=== PATIENT | male | born 1955 | race Caucasian/White ===

== ENCOUNTER → 2016-05-29 | Day surgery (SDC) | payer OTHER ==
[~2016-05-29] MED LIST: BUPIVACAINE/EPINEPHRINE 0.5% PF 30 ML VIAL ONE; COUM5TAB PO; FURO1TAB93 PO; KETOROLAC TROMETHAMINE 30 MG/ML (IVP) VIAL IV PUSH ONE; LACTATED RINGER'S 1000 ML INJ 1,000 ML ONE; MEPERIDINE HCL 25 MG/ML VIAL ONE; MEPERIDINE HCL 50 MG/ML VIAL ONE; METH750T2 PO; MIDAZOLAM HCL 2 MG/2 ML VIAL ONE; ONDANSETRON HCL 4 MG/2 ML VIAL IV PUSH ONE; POTA-243 PO; PROPOFOL 200 MG/20 ML AMP IV ONE; ceFAZolin 2 GM PREMIX 50 ML ONE; oxyCODONE/ACETAMINOPHEN 5 MG/325 MG TAB ONE
--- NOTE | 2016-05-31 15:25 | MP ---
cc: CANDACE CLANCY M.D. DATE OF SURGERY: 05/29/2016 PREOPERATIVE DIAGNOSIS: Arthrofibrosis, left knee. POSTOPERATIVE DIAGNOSIS: Arthrofibrosis, left knee. OPERATION: Left knee arthroscopic extensive debridement including synovectomy, suprapatellar pouch, lateral gutter and anterior compartment. Left knee arthroscopic lateral relief. ANESTHESIA: General. SURGEON: Candace Clancy MD ESTIMATED BLOOD LOSS: Minimum. DRAINS: None. SPECIMENS: None. COMPLICATIONS: None known. 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 He has had improvement of his knee function following that revision surgery but he continues to have significant limitation of the flexion. He has a tight lateral reticulum, he has some build up of calcification along the lateral gutter of the knee. He has offered a arthroscopic approproach to this problem, understanding the risks and potential benefits and the risks after surgery which could make his condition worse or not improve his condition. DISCUSSION: Detailed informed consent was obtained. PROCEDURE: The patient is brought into the operating room and is placed under general anesthesia. The left lower extremity is prepped and drained, noted in usual sterile fashion. IV antibiotics were given a time out was completed. We proceeded with injecting Marcaine and epinephrine about the planned superior portals. We made a portal superior to the patella both medially and laterally. We introduced the scope first to the medial portal and visualized by looking across the suprapatellar pouch. There was abundant scar tissue on the femur and looking up words superiorly there is significant scar tissue formation, we brought the shaver in from the medial sided and debrided the scar tissue and then we used a Melgoza Care Wand to further ablate scar tissue and obtain hemostasis. We released capsular tissue along the medial gutter and we did take photographed from this vantage point then we switched and then visualize from the superior medial portal and then cleaned and removed scar tissue from the suprapatellar pouch on the lateral side and then we switched to a 70 degrees scope and we cleaned the gutter extensively on the lateral side which had abundant scar tissue and then we made our inferolateral portal and we came on top of the fascial layer but underneath the subcutaneous fat and we came up to the superior portal and then we brought the cautery in from this angle and then with a direct visualization with the 70 degrees scope we did arthroscopic lateral release and completed that and then resected quite a bit of the thickened retinacular tissue along the lateral aspect and then coming down inferiorly. We continued to resect scar tissue and we brought the cautery and the inferior lateral and proceeded to direct this into the anterior aspect of the knee where there was significant amount of thickened scar tissue in this location. At this point we then cleared out enough scar tissue that we could see the lateral gutter and the lateral joint line and we came down along the lateral joint line and we found calcium and also bone along the lateral joint line and then we released this and that resected this. Then we switched the scope to the anterior inferior portal and brought in the shaver in the cautery device is from the superior lateral and were able to come down on the joint line and clean this out, after this was performed, then we started with inferior medial portal and made this portal at the level of the polyethylene to continue to protect in the femoral condyle from beginning scratched and then used the cautery again to ablate and also the shaver and continued to clean the posterior fat pad region and then once we had good visualization here and then we came medially and there was significant thickened synovial tissue and scar tissue and this was removed. We came all way around to the medial aspect and the level of the polyethylene spacer and after this was completed and then we went to the notch and we did some bony debridement and then some debridement and partial release of the posterior cruciate ligament and we were satisfied that we had that taken out the abundant scar tissue and then took our final photograph and then we remove all of the arthroscopic equipment and at the beginning the operation we checked the gravity flexion which was about 80 degrees. Now gravity flexion was about 95-100 degrees and we are able to manipulate the knee and a slightly further flexion probably as high as 120 degrees. The Marcaine had been injected about the portals. We injected additional Marcaine and then we closed with 3-0 nylon. Xeroform applied. Sterile dressing applied. Malcolm wrap applied. The patient was awoken return recovery room in stable condition. MD AIDA Murphy/keily /2:16 PM /3:00 PM
== END | disposition home or self-care (01) ==
LOC: ESDC 10:12
PROVIDERS: ATTEND Orthopaedic Surgery Sports Medicine
DX: M24.662 Ankylosis, left knee (principal)
CPT/HCPCS: 01400; 29873; J0690; J1885; J2175; J2250; J2405; J3010; J7120